=== PATIENT | female | born 1930 | race Caucasian/White ===

== ENCOUNTER → 2017-10-13 | Outpatient (CLI) | payer MEDICARE ==
[~2017-10-13] MED LIST: ALBU90OI6; ALIGN PROBIOTIC; ALPR.25; ALPR.25 PO; AMIO200 PO; ASPI325EC PO; ASPI81CH PO; Align4 MG PO; BENTYL10 MG PO; Biotin1 MG PO; CALCA500CH PO; CALCAVITD PO; CAND16; CAND4 PO; CEPH500 PO; CHOL10002; CHOL10002 PO; CIPRO500 MG PO; DOXEPIN; FELO2.5; FELO5CR PO; FELODIPINE PO; Felodipine ER2.5 MG PO; Flagyl500 MG PO; IMVEXXY4 MCG VAG; LEVFLO500 PO; LEVSOD100; LEVSOD125 PO; LEVSOD75; LOPE2C PO; Lisinopril2.5 MG PO; MAGOXI400 PO; METR500 PO; MULVITMINF PO; Macrobid 100 M100 MG PO; Metamucil Smooth1 EA PO; NEBI5; NEBI5 PO; ONDA4 PO; ONDA4ODT MM; OXYACE5T PO; POLY500 PO; POTCHL20ER PO; PROM25 PO; Percocet 5-3251 EACH PO; Pyridium100 MG PO; RANI150 PO; RISP.25 PO; TRAM50 PO; Vitamin D2000 UNIT PO; Zantac150 MG PO; Zofran Odt4 MG SL; [UNRECOGNIZED DRUG - MIXTURE]
== END ==
LOC: LAB 16:38
DX: S81.802A Unspecified open wound, left lower leg, initial encounter (principal); L08.9 Local infection of the skin and subcutaneous tissue, unspecified; R60.0 Localized edema
CPT/HCPCS: 87070; 87077; 87186; 87205

== ENCOUNTER 2017-11-19 09:42 | Emergency (ER) | payer MEDICARE ==
[~2017-11-19] VITALS: Ht 157.5 cm; Wt 47.2 kg
[~2017-11-19 09:42] MED LIST changes: -ASPI325EC PO; -Biotin1 MG PO; -IMVEXXY4 MCG VAG; -Macrobid 100 M100 MG PO; -ONDA4ODT MM; -Pyridium100 MG PO; -RISP.25 PO
[2018-08-03] MEDS ORDERED: TRAM50 PO (13:38)
[2018-08-03] MEDS ORDERED: Biotin1 MG PO (13:39)
[2018-08-03] MEDS ORDERED: RISP.25 PO (13:39)
[2018-08-03] MEDS ORDERED: ONDA4ODT MM (13:39)
[2018-08-18] MEDS ORDERED: ASPI325EC PO (14:34)
[2018-08-18] MEDS ORDERED: TRAM50 PO (14:35)
[2018-08-27] MEDS ORDERED: Macrobid 100 M100 MG PO (14:54)
[2018-09-14] MEDS ORDERED: IMVEXXY4 MCG VAG (16:16)
[2018-09-14] MEDS ORDERED: Pyridium100 MG PO (16:16)
== END 2017-11-19 10:32 | disposition home or self-care (01) ==
LOC: ER 09:42
DX: S81.012A Laceration without foreign body, left knee, initial encounter (principal); Z88.8 Allergy status to other drugs, medicaments and biological substances; Z88.2 Allergy status to sulfonamides; Z88.5 Allergy status to narcotic agent; Z88.1 Allergy status to other antibiotic agents; Z79.899 Other long term (current) drug therapy; Z79.82 Long term (current) use of aspirin; Z79.2 Long term (current) use of antibiotics; I10 Essential (primary) hypertension; W18.39XA Other fall on same level, initial encounter
CPT/HCPCS: 99282

== ENCOUNTER 2018-02-19 10:06 | Emergency (ER) | payer MEDICARE ==
[~2018-02-19] VITALS: Ht 157.5 cm; Wt 46.3 kg
[~2018-02-19 10:06] MED LIST changes: -Metamucil Smooth1 EA PO; +PSYL5.85P PO; -Zantac150 MG PO
== END 2018-02-19 11:27 | disposition home or self-care (01) ==
LOC: ER 10:06
DX: S81.811A Laceration without foreign body, right lower leg, initial encounter (principal); I10 Essential (primary) hypertension; Z91.018 Allergy to other foods; Z91.011 Allergy to milk products; Z88.8 Allergy status to other drugs, medicaments and biological substances; Z88.2 Allergy status to sulfonamides; Z88.5 Allergy status to narcotic agent; Z88.1 Allergy status to other antibiotic agents; Z79.899 Other long term (current) drug therapy; Z79.82 Long term (current) use of aspirin; X58.XXXA Exposure to other specified factors, initial encounter
CPT/HCPCS: 99282

== ENCOUNTER 2018-04-25 19:05 | Emergency (ER) | payer MEDICARE ==
[~2018-04-25] VITALS: Ht 160 cm; Wt 47.2 kg
== END 2018-04-25 19:54 | disposition home or self-care (01) ==
LOC: ER 19:05
DX: S51.812A Laceration without foreign body of left forearm, initial encounter (principal); Z79.899 Other long term (current) drug therapy; Z79.82 Long term (current) use of aspirin; X58.XXXA Exposure to other specified factors, initial encounter
CPT/HCPCS: 99282